=== PATIENT | male | born 1995 | race Caucasian/White ===

== ENCOUNTER 2024-11-06 12:12 | Outpatient (AMB) | payer OTHER, SELFPAY ==
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
[2024-11-06 12:33] VITALS: BP 139/75; PULSE 65; RESP 16; TEMP 36.7; O2SAT 98; BMI 31.4
[2024-11-06 12:50] VITALS: BP 120/76
== END 2024-11-06 13:15 | disposition home or self-care (01) ==
LOC: HO.HMCFM 12:14
PROVIDERS: PCP Nurse Practitioner Family; Visit Provider Nurse Practitioner Family
DX: Z00.00 Encounter for general adult medical examination without abnormal findings (principal); K21.9 Gastro-esophageal reflux disease without esophagitis; E66.811 Obesity, class 1; Z68.31 Body mass index [BMI] 31.0-31.9, adult; F10.90 Alcohol use, unspecified, uncomplicated; F17.210 Nicotine dependence, cigarettes, uncomplicated; Z72.89 Other problems related to lifestyle

== ENCOUNTER → 2024-11-06 12:12 | Outpatient (BNVA) | payer OTHER, SELFPAY | PROVIDERS: PCP Nurse Practitioner Family; Visit Provider Nurse Practitioner Family | DX: Z00.00 Encounter for general adult medical examination without abnormal findings (principal); K21.9 Gastro-esophageal reflux disease without esophagitis; F10.90 Alcohol use, unspecified, uncomplicated; E66.811 Obesity, class 1; Z72.89 Other problems related to lifestyle; F17.210 Nicotine dependence, cigarettes, uncomplicated | CPT/HCPCS: 96127; 99202; 99385 ==

== ENCOUNTER 2024-11-17 07:35 | Outpatient (REF) | payer OTHER, SELFPAY ==
[2024-11-17 12:30] LABS: MANUAL DIFF FLAG NO
[2024-11-17 12:31] LABS: Appearance Urine Clear; Color Urine Yellow; Glucose Urine UA Negative (Negative); Leukocyte Esterase Urine Negative (Negative); Nitrite Urine Negative (Negative); PH 6.5 (5.0-9.0); UMIC TRIGGER UACC YES; Urine Blood Negative (Negative); Urine Ketones Negative (Negative); Urine Protein 30 (1+) mg/dL (Neg-Trace)
[2024-11-17 12:38] LABS: Bacteria Urine None Seen (None Seen); Hyaline Casts Urine 0-2 /LPF (0-2); RBC Urine 0-2 /HPF (0-2); Squamous Epithelial Cell Urine 0-2 /HPF (0-2); WBC Urine 0-5 /HPF (0-5)
[2024-11-17 12:45] LABS: Basophils Absolute Auto 0.1 X10*3/uL (0.0-0.2); Basophils Percent Auto 0.8 % (0-2); Eosinophils Absolute Auto 0.1 X10*3/uL (0.0-0.4); Eosinophils Percent Auto 1.3 % (0-4); Hematocrit 52.6 % (42.0-52.0); Hemoglobin 18.4 g/dl (14.0-18.0); Imm Gran Abs Auto 0.05 X10*3/uL (0.00-0.03); Imm Gran Pct Auto 0.7 % (0.0-0.4); Lymphocytes Absolute Auto 2.3 X10*3/uL (1.2-4.9); Mean Corpuscular Hemoglobin 32.2 pg (27.0-33.0); Mean Corpuscular Volume 92.1 fL (80.0-98.0); Mean Platelet Volume 10.9 fL (9.4-12.4); Monocytes Absolute Auto 0.5 X10*3/uL (0.1-1.2); Monocytes Percent Auto 6.5 % (2-11); Neutrophils Absolute Auto 4.2 x10*3/uL (2.0-8.3); Neutrophils Percent Auto 58.7 % (45-73); Platelet Count 216 X10*3/uL (160-400); Red Blood Count 5.71 X10*6/uL (4.60-5.80); Red Cell Distribution Width 12.7 % (11.0-16.0); White Blood Count 7.1 X10*3/uL (4.8-10.8)
[2024-11-17 13:21] LABS: Alanine Aminotransferase 89 U/L (0-40); Albumin Level 4.8 g/dL (3.5-5.0); Alkaline Phosphatase 55 U/L (39-117); Anion Gap 12 (12-20); Aspartate Amino Transferase 43 U/L (5-37); Bilirubin Total 0.7 mg/dL (0.0-1.0); Blood Urea Nitrogen 10 mg/dL (9-16); Calcium 9.2 mg/dL (8.4-10.2); Carbon Dioxide 27 mmol/L (22-29); Chloride 105 mmol/L (96-108); Cholesterol 214 mg/dL (<200); Estimated Glomerular Filt Rate > 60; Glucose Fasting 102 mg/dL (60-99); HDL Cholesterol 55 mg/dL (>40); LDL Cholesterol Calculated 134 mg/dL (<100); Potassium 3.9 mmol/L (3.3-5.1); Sodium 140 mmol/L (135-145); Total Protein 7.5 g/dL (6.5-8.0); Triglycerides 126 mg/dL (<150)
[2024-11-17 13:38] LABS: Microalbum/Creatinine Ratio Ur 23.2 ug/mg cr (<30)
[2024-11-17 13:42] LABS: TSH reflex Free T4 1.22 uIU/mL (0.32-4.0); Vitamin D 25-OH Total 58.1 ng/mL (>30)
== END 2024-11-17 07:36 | disposition home or self-care (01) ==
LOC: HO.WFDLDS 07:35
PROVIDERS: Visit Provider Nurse Practitioner Family
DX: Z00.00 Encounter for general adult medical examination without abnormal findings (principal); Z13.220 Encounter for screening for lipoid disorders; Z13.29 Encounter for screening for other suspected endocrine disorder; Z13.228 Encounter for screening for other metabolic disorders; Z13.9 Encounter for screening, unspecified
CPT/HCPCS: 36415; 80053; 80061; 81001; 82043; 82306; 82570; 84443; 85025

== ENCOUNTER 2024-11-21 13:09 | Outpatient (AMB) | payer OTHER, SELFPAY ==
--- NOTE | 2024-11-21 13:05 | MHC.PC.OV ---
Intake Visit Reasons: Telehealth 2-3 wks labs review Intake Note: Lab results. Regulatory Product Manager Required: No Allergies No Known Allergies Allergy (Verified 11/06/24 12:44) Tobacco use date assessed: 11/21/24 Dental Screening Dental Screen Date: 11/06/24 HPI HPI Comments History of Present Illness Details 29-year-old male presents for a telehealth visit for review of recent labs review. He notes that he significantly cut down from drinking 4-5 beers/vodka daily to drink 1 mixed drink daily x 6 days weekly. He was referred to [facility] addiction medicine but has not heard from them. He offers no complaints and denies acute symptoms at this time. [facility] Medical History (Updated 11/21/24 @ 13:43 by Nerissa Islas CNP) Acid reflux Surgical History S/P foot surgery, left Family History Mother Alcohol abuse Father Alcohol abuse Substance abuse FH: mental illness Maternal Grandfather Alcohol abuse Maternal Grandmother Alcohol abuse Paternal Grandmother Breast cancer Social History (Updated 11/21/24 @ 13:11 by Radha Lindquist CMA) Housing: Apartment Alcohol intake: current Patient Tobacco Use Status: Current everyday Tobacco user Cigarettes Per Day: 10 Years Smoked: 5 e-Cigarette/Vaping Use: Currently Using Second Hand Smoke Exposure: No Substance Use Type: Marijuana service: No Current occupational status: employed Current occupation: [employer] Current occupational exposures/hazards: Yes Cognitive needs: No Hearing needs: No Vision needs: No Questionnaire PHQ-9 Over the last 2 weeks, how often have you been bothered by any of the following problems? 1. Little interest or pleasure in doing things: not at all 2. Feeling down, depressed, or hopeless: not at all 3. Trouble falling or staying asleep, or sleeping too much: not at all 4. Feeling tired or having little energy: several days 5. Poor appetite or overeating: not at all 6. Feeling bad about yourself - or that you are a failure or have let yourself or your family down: not at all 7. Trouble concentrating on things, such as reading the newspaper or watching television: not at all 8. Moving or speaking so slowly that other people could have noticed. Or the opposite - being so fidgety or restless that you have been moving around a lot more than usual: nearly every day 9. Thoughts that you would be better off or of hurting yourself in some way: not at all Total score: 4 Depression Screening Interpretation: Positive Depression Screening Done: Yes 74361 - PHQ-9 Billing: Yes Source: Developed by Drs. Rocco Billings, Juan Philippe and colleagues, with an educational juan from [employer]. Thrive Questionnaire Date Thrive assessed: 11/06/24 SHAY-7 AMB Questionnaire SHAY-7 Date SHAY - 7 assessed: 11/21/24 Feeling nervous, anxious, or on edge: 0 = Not at all Not being able to stop or control worryin = Several days Worrying too much about different things: 1 = Several days Trouble relaxin = Nearly every day Being so restless that it is hard to sit still: 3 = Nearly every day Becoming easily annoyed or irritable: 0 = Not at all Feeling afraid as if something awful might happen: 1 = Several days Total SHAY-7 score (0-4 normal; 5-9 mild; 10-14 moderate; 15-21 severe): 9 Source: Developed by Drs. Rocco Billings, Melonie Guillermo, Juan Smith and colleagues, with an educational juan from [employer]. SHAY-7 Assessment Billing SHAY-7 Assessment Tool: SHAY-7 Assessment 51770 Review of Systems Const Details: Denies chills, Denies fatigue, Denies fever(s), Denies headache(s) and Denies weakness Cardiac Denies chest pain, Denies claudication, Denies leg edema, Denies lightheadedness, Denies palpitations, Denies dyspnea, Denies dyspnea on exertion, Denies orthopnea and Denies other (Loss of consciousness) Resp Denies cough, Denies excessive phlegm production, Denies dyspnea, Denies dyspnea on exertion, Denies snoring and Denies wheezing Physical exam (Primary Care) Tobacco/Smoking Status: Tobacco use Status Tobacco use date assessed 11/21/24 11/21/24 13:08 Patient Tobacco Use Status Current everyday Tobacco 11/21/24 13:11 e-Cigarette/Vaping Use Currently Using 11/21/24 13:11 PHQ-9: PHQ-9 Score PHQ-9: Total score 4 11/21/24 13:08 Depression Screening Interpretation: Positive Thrive Assessment: Date of Thrive Assessment Date Thrive assessed 11/06/24 11/21/24 13:08 Const Other: Patient is alert and oriented x3. Telehealth Telehealth Telehealth Platform: Telephone Location of provider rendering services: practice address Location of patient: address on file Patient Identification confirmed using: Name, : Yes Telehealth method: voice only Patient verbally consented to treatment: Yes Patient verbally consented to billing insurance company: Yes Patient informed of any privacy concerns related to visit: Yes Coding Level of Care Code Tele Est Pt Level 3 (70931) Diagnoses Elevated fasting glucose R73.01 Transaminitis R74.01 Hypercholesterolemia E78.00 Additional Codes SHAY-7 Assessment Billing - SHAY-7 Assessment Tool: SHAY-7 Assessment 86535 ([id number]) PHQ-9 - 49913 - PHQ-9 Billing: Yes ([id number]) Time Spent (min) 15 Assessment & Plan Assessment & Plan (1) Elevated fasting glucose: Code(s): R73.01 - Impaired fasting glucose Category: Medical Plan: Recent fasting glucose is slightly elevated, 102. Will recheck fasting glucose and make changes as needed. (2) Transaminitis: Code(s): R74.01 - Elevation of levels of liver transaminase levels Category: Medical Plan: Recent AST and ALT levels are elevated, 43 and 89 respectively. Likely related to poor diet or excessive alcohol intake. He has history of significant alcohol intake. He currently drinks 1 mixed drinks daily, 6 days weekly. Routine exercise and healthy diet, including low-fat encouraged. Encouraged to significantly cut down on his alcohol intake. Fast for 10-12 hours, may drink water, and perform fasting blood work to 3 days before next visit. Follow-up for telehealth visit in 2 months. Return sooner with symptoms or concerns. Verbalized understanding and agreed with the plan. (3) Hypercholesterolemia: Code(s): E78.00 - Pure hypercholesterolemia, unspecified Category: Medical Plan: Recent total cholesterol and LDL levels the slightly elevated, 214 and 134 respectively. Advised to limit foods high in saturated fat and avoid foods high in trans fat. Routine exercise encouraged. Will recheck lipid panel levels in 2 months. Verbalized understanding and agreed with the plan. Orders: Orders Lipid Panel 2 Months E78.00 - Pure hypercholesterolemia, unspecified Liver Panel 2 Months R74.01 - Elevation of levels of liver transaminase levels Glucose Fasting Today R73.01 - Impaired fasting glucose
--- OUTSIDE RECORDS SUMMARY | 2024-11-21 15:00 | XMS_ITS | Encounter Summary ---
Author Organization [facility] Address [address] [place] [address] Phone Care Team Providers Care Spine Specialist Name Role Phone Rocco Dobbs MD Primary Care Provider [phone] Encounter Details Date Type Department Care Team (Late st Contact Info) Description 09/02/2009 Documentation [facility] [place] Family Medicine [address] [place] [address] Family Medicine, Physician [address] [place] [address] Social History Tobacco Use Types Packs/Day Years Used Date Smoking Tobacco: Never Assessed Sex and Gender Information Value Date Recorded Sex Assigned at Not on file Legal Sex Male 6:09 PM EDT Gender Identity Not on file Sexual Orientation Not on file documented as of this encounter Plan of Treatment Not on file documented as of this encounter Visit Diagnoses Not on filedocumented in this encounter Care Teams Spine Specialist Relationship Specialty Start Date End Date Rocco Dobbs MD [address] [place] [address] PCP - General 12/26/17 09/28/24 documented as of this encounter
--- OUTSIDE RECORDS SUMMARY | 2024-11-21 15:00 | XMS_ITS | Data Portability ---
Author Organization [facility] Nieto [facility] , [id number] Address [address] [place] [address] Assessment No assessment recorded. Plan of Treatment Reminders Order Date Submit Date Provider Last Modified By Organization Details Last Modified Time Details Appointments None recorded. Lab None recorded. Referral gastroenter ologist referral 2024 025 alaines Not available 11:11:56 Procedures None recorded. Surgeries None recorded. Imaging None recorded. Medication Orders omeprazole 20 mg capsule,del ayed release 2024 025 [email or web address] [id number], [address] [place], [address], 11:10:23 Patient TargetsNo targets recorded. Patient Instructions Encounter Date Encounter Id Patient Instructions Last Modified By Organization Details Last Modified Time 08/30/2024 [id number] gastroesophageal reflux disease (GERD): care instructions [email or web address] Not available 08/30/2024 11:10:20 Reason for Referral Clinical Documentation Manager Referral for Gastroesophageal reflux disease Referring Physician: Wong Temple, Urgent Care, Encounter Date: 08/30/2024 Procedures Surgical History Date Name Laterality Status Provider Name and Address Organization Details Recorded Time OC-UDS Send Out Template NON DOT completed Dominique Nieto [facility] 04/05/2023 09:21:25 Imaging Results None recorded. Procedure Notes None recorded. Medical Equipment None Reported. Allergies No known drug allergies Medications Name Sig Start Date Stop Date Status Note LastModified by Organization Details LastModified Time tamsulosin 0.4 mg capsule TAKE 1 CAPSULE BY MOUTH EVERY DAY FOR 7 DAYS 08/30 completed Not Available Not Available Not Available omeprazole 20 mg capsule,del ayed release TAKE 1 CAPSULE BY MOUTH EVERY DAY active Not Available Not Available No t Available ondansetron 4 mg disintegrat ing tablet TAKE 1 TABLET BY MOUTH EVERY 8 HOURS NEEDED FOR NAUSEA AND VOMITING FOR 3 DAYS 08/30 completed Not Available Not Available Not Available doxycycline hyclate 100 mg tablet TAKE 1 TABLET BY MOUTH TWICE A DAY FOR 7 DAYS 08/30 completed Not Available Not Available Not Available oxycodone 5 mg tablet TAKE 1 TABLET BY MOUTH EVERY 6 HOURS FOR 3 DAYS NEEDED FOR PAIN 08/30 completed Not Available Not Available Not Available Vitals Date Recorded Body height Body mass index (BMI) Body weight Oxygen saturation Oxygen saturation in Arterial blood by Pulse oximetry Heart rate Body temperature Systolic blood pressure Diastolic blood pressure Provider Name and Address Organization Details Last Updated DateTime 167.64 cm 31.3 kg/m2 96098.9 2 g 97 % 97 % 71 /min 98.2 [degF] 126 mm[Hg] 82 mm[Hg] Kena PERRY [employer] 10:54:01 Social History Question Answer Notes LastModified by [employer] Details LastModified Time Tobacco Smoking Status Never Smoker Kena myles [employer] 08/30/2024 10:56:14 What Is Your Level Of Alcohol Consumption? Moderate Information not available 08/30/2024 How Many Times Per Week Do You Consume Alcohol? 5-7 Times Per Week Information not available 08/30/2024 Are You Currently Employed? Yes Information not available 08/30/2024 Which Illicit Or Recreational Drugs Have You Used? MARIJUANA Information not available 08/30/2024 Have You Had A Flu Shot This Season? No Information not available 08/30/2024 If No, Would You Like A Flu Shot Today? No Information not available 08/30/2024 What Is Your Relationship Status? Single Information not available 08/30/2024 Are You Passively Exposed To Smoke? No Information no t available 08/30/2024 Do You Use Any Illicit Or Recreational Drugs? Yes Information not available 08/30/2024 Do You Or Have You Ever Used Any Other Forms Of Tobacco Or Nicotine? No Information not available 08/30/2024 Sex: Unknown Functional Status None recorded. Mental Status None recorded. Family History Nothing Reported. Medical History No medical history recorded. Past Encounters Encounter ID Performer Location Encounter Start Date Encounter Closed Date Diagnosis/Indication Diagnosis SNOMED-CT Code Diagnosis ICD10 Code Diagnosis Note [id number] [address] 12/29/2016 16:49:00 12/29/2016 17:40:41 [id number] [place] DIXON [address] [address] 04/05/2023 09:08:23 04/05/2023 09:26:14 History and physical examination, occupation 635898542 Z02.1 [id number] Wong Temple DO [address] [address] 08/30/2024 10:41:32 08/30/2024 11:11:56 Gastroesophageal reflux disease 540180687 K21.00 GERD v PUDstart PPI BIDGI referralav oid NSAID and gerd triggers Patient advised to follow up as needed for worsening symptoms or no improvemen Babita jackson concerning red flags with patient and reasons to follow up in the Emergency Department urgently.P atient expressed understand ing of and agreement with the plan as outlined above. Health Concerns Section Related Observation LastModified by Organization Detai ls LastModified Time None Recorded Concern Status LastModified by Organization Details LastModified Time None Recorded Advance Directives Directive None Recorded Payers Encounter Date Sequence Insurance Name Policy Number Policy Perea Covered Member ID Perea Member ID Guarantor Name 12/29/2016 1 [employer] (POS) [id number] Lolly Subha [id number] Oral Gutierrez 04/05/2023 [employer]CREEN [employer] OTHER Mi roasnna Matt 08/30/2024 1 [facility] (O) [id number] Oral Gutierrez [id number] Oral Gutierrez Notes Date Note Type Note Provider Name and Address Organization Details Recorded Time 08/30/2024 text/html 29 yo male c/o throat pain and esophageal pain x monthsradiates to upper abdomen/back no f/cno n/vno d/cno abdominal painno melena/BRBPRno new medsHe has used ibutolerating POno wt lossnon smoker Wong Temple, DO [address] [place], [address], [place] - [facility] 08/30/2024 11:11:41
--- OUTSIDE RECORDS SUMMARY | 2024-11-21 15:00 | XMS_ITS | Encounter Summary ---
Author Organization [facility] Address [address] [place] [address] Phone Care Team Providers Care Porcelain Slusher Name Role Phone Rocco Dobbs MD Primary Care Provider [phone] Encounter Details Date Type Department Care Team (Late st Contact Info) Description 09/14/2009 Documentation [facility] [place] [address] [place] [address] Family Medicine, Physician [address] [place] [address] Social History Tobacco Use Types Packs/Day Years [...] on filedocumented in this encounter Care Teams Porcelain Slusher Relationship Specialty Start Date End Date Rocco Dobbs MD [address] [place] [address] PCP - General 12/26/17 09/28/24 documented as of this encounter
--- OUTSIDE RECORDS SUMMARY | 2024-11-21 15:00 | XMS_ITS | Encounter Summary ---
Author Organization [facility] Address [address] [place] [address] Phone Care Team Providers Care Special Loan Officer Name Role Phone Rocco Dobbs MD Primary Care Provider [phone] Encounter Details Date Type Department Care Team (Late st Contact Info) Description 01/06/2018 Conversion Encounter [facility] [address] [place] [address] Rocco Dobbs MD [address] [place] [address] Social History Tobacco Use Types Packs/Day Years [...] on filedocumented in this encounter Care Teams Special Loan Officer Relationship Specialty Start Date End Date Rocco Dobbs MD [address] [place] [address] PCP - General 12/26/17 09/28/24 documented as of this encounter
--- OUTSIDE RECORDS SUMMARY | 2024-11-21 15:00 | XMS_ITS | Encounter Summary ---
Author Organization [facility] Address [address] [place] [address] Phone Care Team Providers Care Watchguard Name Role Phone Rocco Dobbs MD Primary Care Provider [phone] Encounter Details Date Type Department Care Team (Late st Contact Info) Description 08/23/2009 Documentation [facility] [place] [address] [place] [address] Family Medicine, Physician [address] [place] [address] Social History Tobacco Use Types Packs/Day Years [...] on filedocumented in this encounter Care Teams Watchguard Relationship Specialty Start Date End Date Rocco Dobbs MD [address] [place] [address] PCP - General 12/26/17 09/28/24 documented as of this encounter
--- OUTSIDE RECORDS SUMMARY | 2024-11-21 15:00 | XMS_ITS | Clinical Summary ---
Author Organization [facility] Address [address] [place] [address] Phone Care Team Providers Care Construction Services Technician Name Role Phone Unavailable Primary Care Provider Unavailabl e Immunizations Immunization Administration Dates Next Due DTaP 12/23/2001, 8,1997, 998,1997 Hep B, ped/adol 01/21/1998,1997,1997 Hib (PRP-T) 07/28/1998, 8,1997, 997 IPV 12/23/2001, 8,1997, 997 MMR 12/23/2001,04/22/1998 Meningococcal Conj (Menactra) MCV4P 07/21/2013,1 09/05/2007 Tdap 07/03/2007 Varicella 07/03/2007,04/22/1998 Family History Relation Name Status Comments Father (bio)/ step fat her also - suicide age: 30 Maternal Grandfather Alive no hype rlipidemia, no, CAD Maternal Grandmother Alive Mother Alive healthy age: 30 Other Alive Siblings: healt hy Paternal Grandfather Alive Paternal Grandmother Alive Social History Tobacco Use Types Packs/Day Years Used Date Smoking Tobacco: Never Assessed Sex and Gender Information Value Date Recorded Sex Assigned at Not on file Legal Sex Male 6:09 PM EDT Gender Identity Not on file Sexual Orientation Not on file Last Filed Vital Signs Vital Sign Reading Time Taken Comments Blood Pressure 118/64 04/21/2015 12:00 AM EDT Pulse - - Temperature 36.2 ??C (97.2 ??F) 04/21/2015 1 2:00 AM EDT Respiratory Rate - - Oxygen Saturation - - Inhaled Oxygen Concentration - - Weight 63.9 kg (140 lb 12.8 oz) 015 12:00 AM EDT Height 167.6 cm (5' 6 ) 04/21/2015 12:0 0 AM EDT Body Mass Index 22.73 04/21/2015 12:00 AM EDT Plan of Treatment Health Maintenance Due Date Last Done Comments DTaP,Tdap,and Td Vaccines (7 - Td or Tdap) 07/03/2017 07/03/2007, 12/23/2001, 07/28/1998, Additional history exists Influenza Vaccines (#1) 2024 COVID-19 Vaccine ( season) 2024 Hepatitis B Vaccines Completed 01/21/1998, 1997, 1997 HIB Vaccines Completed 07/28/1998, 12/1997, 1997, Additional history exists IPV Vaccines Completed 12/23/2001, 10/1997, 1997, Additional history exists MMR Vaccines Completed 12/23/2001, 04/22/1998 Varicella Vaccines Completed 07/03/2007, 04/22/1998 Meningococcal Vaccine Completed 07/21/2013, 008 HPV Vaccines Aged Out No longer eligi ble based on patient's age to complete this topic Hepatitis A Vaccines Aged Out No long er eligible based on patient's age to complete this topic Men B Vaccine Aged Out No longer elig ible based on patient's age to complete this topic Pneumococcal Vaccine Aged Out No long er eligible based on patient's age to complete this topic
== END 2024-11-21 13:58 | disposition home or self-care (01) ==
LOC: HO.HMCFM 13:09
PROVIDERS: PCP Nurse Practitioner Family; Visit Provider Nurse Practitioner Family
DX: R73.01 Impaired fasting glucose (principal); R74.01 Elevation of levels of liver transaminase levels; E78.00 Pure hypercholesterolemia, unspecified

== ENCOUNTER → 2024-11-21 13:09 | Outpatient (BNVA) | payer OTHER, SELFPAY | PROVIDERS: PCP Nurse Practitioner Family; Visit Provider Nurse Practitioner Family | DX: R73.01 Impaired fasting glucose (principal); R74.01 Elevation of levels of liver transaminase levels; E78.00 Pure hypercholesterolemia, unspecified; F17.210 Nicotine dependence, cigarettes, uncomplicated | CPT/HCPCS: 96127 ==

== ENCOUNTER 2025-04-14 10:12 | Outpatient (AMB) | payer OTHER, SELFPAY ==
--- NOTE | 2025-04-14 10:15 | A.OFFVIS_ITS ---
Vital Signs 04/14/25 10:23 Height 5 ft 5 in Weight 187 lb BMI 31.1 BP 140/84 H Blood Pressure Location Rt brachial Position Sitting Pulse 62 Pulse Source Pulse Oximeter Pulse Oximetry (%) 99 Oxygen Delivery Method Room Air Intake Visit Reasons: Gastroesophageal reflux disease (GERD) Intake Note: New pt for initial eval of GERD. CC; C.O. intermittent GERD w/ epigastric pain over the last 8 mos. Pt states that he has been taking the PPI per his PCP which has been helpful. ID'd acidic foods as triggers. Telecommunications Facility Examiner Required: No Accompanied by: Self / Same As Patient Allergies No Known Allergies Allergy (Verified 04/14/25 10:15) HPI HPI Gastroesophageal reflux disease (GERD): Details: 30-year-old male with past medical history of hypercholesterolemia, transaminitis, obesity, smoking, EtOH use, GERD is here today for initial consultation. Patient was sent by his PCP for evaluation. Patient reports that in the past 8 months he has been having acid reflux that started on omeprazole by his PCP and symptoms are suppressed with patient reports that he has acid reflux with spicy food and when he drinks alcohol. Patient reports that he drinks vodka. He admits to be drinking daily. Elevation in liver enzymes back in October. Patient reports that omeprazole works, however he does not take it for few days he will have acid reflux and dyspepsia. Patient denies any nausea or vomiting. He denies any dysphagia or odynophagia. Denies any abdominal pain or discomfort. Moving his bowels without any issues. [facility] Medical History Acid reflux Surgical History S/P foot surgery, left Family History Mother Alcohol abuse Father Alcohol abuse Substance abuse FH: mental illness Maternal Grandfather Alcohol abuse Maternal Grandmother Alcohol abuse Paternal Grandmother Breast cancer Social History Housing: Apartment Alcohol intake: current Patient Tobacco Use Status: Current everyday Tobacco user Cigarettes Per Day: 10 Years Smoked: 5 e-Cigarette/Vaping Use: Currently Using Second Hand Smoke Exposure: No Substance Use Type: Marijuana service: No Current occupational status: employed Current occupation: [employer] Current occupational exposures/hazards: Yes Cognitive needs: No Hearing needs: No Vision needs: No Review of Systems Const Denies weight gain and Denies weight loss ENT Reports no additional complaints, Denies dysphagia and Denies odynophagia Card Reports no additional complaints Resp Reports no additional complaints GI Reports abdominal pain (Epigastric), Denies belching, Denies melena, Reports bloating, Denies change in bowel habits, Denies dysphagia, Denies excessive flatus, Denies dyspepsia, Reports heartburn, Denies diarrhea, Denies loose stools, Denies nausea, Denies odynophagia and Denies vomiting Reports no additional complaints Musc Reports no additional complaints Neuro Reports no additional complaints Psych Reports no additional complaints Endo Reports no additional complaints Physical Exam Vital Signs: Last Vital Signs Pulse 62 04/14/25 10:23 BP 140/84 H 04/14/25 10:23 Pulse Ox 99 04/14/25 10:23 Oxygen Delivery Method Room Air 04/14/25 10:23 BMI result Body Mass Index 31.1 Const General: healthy appearing, no acute distress and well developed Nutritional Appearance: well nourished and obese Orientation/consciousness: patient oriented x3 Resp Effort & Inspection: normal respiratory effort, able to speak in complete sentences, no tracheal deviation and symmetric chest movement Auscultation: clear to auscultation bilaterally Cardio Rate: regular rate GI Inspection: Yes normal to inspection, No distended and Yes obesity Palpation (GI): Soft to palpation, not firm, nontender and No hepatosplenomegaly present Auscultation: normal bowel sounds General: Yes no CVA tenderness Back/Spine/Pelvis Back: no CVA tenderness Skin General skin exam: elasticity normal, turgor normal and dry skin Neuro General: patient oriented x3 Psych Appearance: grossly normal Mental Status: mental status grossly normal Assessment & Plan Assessment & Plan (1) Acid reflux: Code(s): K21.9 - Gastro-esophageal reflux disease without esophagitis Category: Medical Qualifiers: Esophagitis presence: esophagitis presence not specified Qualified Code(s): K21.9 - Gastro-esophageal reflux disease without esophagitis (2) Transaminitis: Code(s): R74.01 - Elevation of levels of liver transaminase levels Category: Medical (3) Alcohol use disorder: Code(s): F10.90 - Alcohol use, unspecified, uncomplicated Category: Medical (4) Postprandial epigastric pain: Code(s): R10.13 - Epigastric pain (5) Postprandial abdominal bloating: Code(s): R14.0 - Abdominal distension (gaseous) Plan Patient will stop omeprazole for couple weeks and will take famotidine. Will return to the office for H pylori testing. Will treat empirically if positive. Patient will go for upper GI with barium swallow. Will check transglutaminase, vitamin B12, folate, vitamin-D, lipase, repeat liver panel. Discussed with patient avoiding dietary triggers and late night snacking. Discussed with patient avoiding alcohol. Staying upright for minimum 3 hours after meals discussed with patient. He will be sent for upper endoscopy to rule out gastritis, esophagitis, duodenitis, H pylori, Barretts. Patient will return to the office after the procedure. He will call us if he will have any GI concerning symptoms. He is agreeable to current plan of care and verbalizes understanding of instructions. He was given the opportunity to ask questions and all questions answered. Thank you for allowing me to participate in his care Orders: Orders H Pylori Breath Test Today K21.9 - Gastro-esophageal reflux disease without esophagitis FL upper GI w air w Ba Swallow Today K21.9 - Gastro-esophageal reflux disease without esophagitis Transglutaminase IgA Today R10.9 - Unspecified abdominal pain Vitamin B12 and Folate Today R19.7 - Diarrhea, unspecified Vitamin D 25-OH (D2 and D3) Today E55.9 - Vitamin D deficiency, unspecified Lipase Today R10.9 - Unspecified abdominal pain Liver Panel Today R74.01 - Elevation of levels of liver transaminase levels Medications: New famotidine (Pepcid) 20 mg PO BID 30 tabs 0RF K29.70 - Gastritis, unspecified, without bleeding Coding Level of Care Code New Pt Level 4 (63042) Diagnoses Gastroesophageal reflux disease, unspecified whether esophagitis present K21.9 Esophagitis presence: esophagitis presence not specified Transaminitis R74.01 Alcohol use disorder F10.90 Postprandial epigastric pain R10.13 Postprandial abdominal bloating R14.0 Time Spent (min) 45 Comment 30 minutes spent with patient and additional 15 minutes spent reviewing his records
[2025-04-14 10:23] VITALS: BP 140/84; PULSE 62; O2SAT 99; BMI 31.1
--- OUTSIDE RECORDS SUMMARY | 2025-04-14 10:57 | XMS_ITS | Encounter Summary ---
Author Organization [facility] Address [address] [place] [address] Phone Care Team Providers Care Bi Application Developer Name Role Phone Rocco Dobbs MD Primary Care Provider [phone] Encounter Details Date Type Department Care Team (Late st Contact Info) Description 09/02/2009 Documentation [facility] [place] [address] [place] [address] Family Medicine, Physician [address] [place] [address] Social History Tobacco Use Types Packs/Day Years [...] on filedocumented in this encounter Care Teams Bi Application Developer Relationship Specialty Start Date End Date Rocco Dobbs MD [address] [facility] [place] [address] PCP - General 12/26/17 09/28/24 documented as of this encounter
--- OUTSIDE RECORDS SUMMARY | 2025-04-14 10:57 | XMS_ITS | Encounter Summary ---
Author Organization [facility] Address [address] [place] [address] Phone Care Team Providers Care Nutrition Worker Name Role Phone Rocco Dobbs MD Primary Care Provider [phone] Encounter Details Date Type Department Care Team (Late st Contact Info) Description 08/23/2009 Documentation [facility] [place] Family Medicine [address] [place] [address] Family Medicine, Physician [address] [place] [address] Social History Tobacco Use Types Packs/Day Years [...] on filedocumented in this encounter Care Teams Nutrition Worker Relationship Specialty Start Date End Date Rocco Dobbs MD [address] [place] [address] PCP - General 12/26/17 09/28/24 documented as of this encounter
--- OUTSIDE RECORDS SUMMARY | 2025-04-14 10:57 | XMS_ITS ---
Author Name [facility] Organization Unknown Encounters Encounter Type Encounter Reason Primary Diagnosis Location Date Ambulatory [facility]. ([facility] 08/30/2024
--- OUTSIDE RECORDS SUMMARY | 2025-04-14 10:57 | XMS_ITS | Clinical Summary ---
Author Organization [facility] Address [address] [place] [address] Phone Care Team Providers Care Revenue Officer Name Role Phone Unavailable Primary Care Provider [...] AM EDT Pulse - - Temperature 36.2 C (97.2 F) 04/21/2015 12:00 AM EDT Respiratory Rate - - Oxygen [...] 07/03/2017 07/03/2007, 12/23/2001, 07/28/1998, Additional history exists HPV Vaccines (1 - 3-dose SCDM series) 2024 COVID-19 Vaccine ( season) 2024 Influenza Vaccines (#1) 2025 Hepatitis B Vaccines Completed 01/21/1998, 1997, 1997 HIB Vaccines Completed 07/28/1998, 12/1997, 1997, Additional history exists IPV Vaccines Completed 12/23/2001, 10/1997, 1997, Additional history exists MMR Vaccines Completed 12/23/2001, 04/22/1998 Varicella Vaccines Completed 07/03/2007, 04/22/1998 Meningococcal Vaccine Completed 07/21/2013, 008 Hepatitis A Vaccines Aged Out No long er eligible based on patient's age to complete this topic Men B Vaccine Aged Out No longer elig ible based on patient's age to complete this topic Pneumococcal Vaccine Aged Out No long er eligible based on patient's age to complete this topic
--- OUTSIDE RECORDS SUMMARY | 2025-04-14 10:57 | XMS_ITS | Encounter Summary ---
Author Organization [facility] Address [address] [place] [address] Phone Care Team Providers Care Hand Method Lasting Machine Operator Name Role Phone Rocco Dobbs MD Primary Care Provider [phone] Encounter Details Date Type Department Care Team (Late st Contact Info) Description 01/06/2018 Conversion [facility]counter [facility] [address] [place] [address] Rocco Dobbs MD [address] [place] [address] Social History Tobacco Use Types Packs/Day Years [...] on filedocumented in this encounter Care Teams Hand Method Lasting Machine Operator Relationship Specialty Start Date End Date Rocco Dobbs MD [address] [place] [address] PCP - General 12/26/17 09/28/24 documented as of this encounter
--- OUTSIDE RECORDS SUMMARY | 2025-04-14 10:57 | XMS_ITS | Encounter Summary ---
Author Organization [facility] Address [address] [place] [address] Phone Care Team Providers Care Fitness Management Director Name Role Phone Rocco Dobbs MD Primary Care Provider [phone] Encounter Details Date Type Department Care Team (Late st Contact Info) Description 09/14/2009 Documentation [facility] [place] [facility] [place] [address] [place] [address] Family Medicine, Physician [address] [place] [address] Social History Tobacco Use Types Packs/Day Years [...] on filedocumented in this encounter Care Teams Fitness Management Director Relationship Specialty Start Date End Date Rocco Dobbs MD [address] [place] [address] PCP - General 12/26/17 09/28/24 documented as of this encounter
== END 2025-04-14 10:49 | disposition home or self-care (01) ==
LOC: HO.HGI 10:13
PROVIDERS: PCP Nurse Practitioner Family; Visit Provider Nurse Practitioner Family
DX: K21.9 Gastro-esophageal reflux disease without esophagitis (principal); R74.01 Elevation of levels of liver transaminase levels; F10.90 Alcohol use, unspecified, uncomplicated; R10.13 Epigastric pain; R14.0 Abdominal distension (gaseous)
CPT/HCPCS: 99204

== ENCOUNTER 2025-04-14 10:12 | Outpatient (REF) | payer OTHER, SELFPAY ==
[2025-04-14 12:22] LABS: Alanine Aminotransferase 75 U/L (0-40); Albumin Level 5.2 g/dL (3.5-5.0); Alkaline Phosphatase 60 U/L (39-117); Aspartate Amino Transferase 38 U/L (5-37); Lipase 15 U/L (8-78); Total Protein 7.6 g/dL (6.5-8.0)
[2025-04-14 12:43] LABS: Folate 11.0 ng/mL (> or = 4.0); Vitamin B12 591 pg/mL (200-900)
[2025-04-19 16:49] LABS: Vitamin D 25-OH, D2 <4 ng/mL; Vitamin D 25-OH, D3 42 ng/mL; Vitamin D 25-OH, Total 42 ng/mL (30-100)
== END 2025-04-14 10:13 | disposition home or self-care (01) ==
LOC: HO.LAB 10:12
PROVIDERS: PCP Nurse Practitioner Family; Visit Provider Nurse Practitioner Family
DX: K21.9 Gastro-esophageal reflux disease without esophagitis (principal); R74.01 Elevation of levels of liver transaminase levels; F10.90 Alcohol use, unspecified, uncomplicated; R10.13 Epigastric pain; R14.0 Abdominal distension (gaseous); R19.7 Diarrhea, unspecified; E55.9 Vitamin D deficiency, unspecified; F17.210 Nicotine dependence, cigarettes, uncomplicated; Z79.899 Other long term (current) drug therapy
CPT/HCPCS: 36415; 80076; 82306; 82607; 82746; 83690; 86364; 99202

== ENCOUNTER 2025-05-01 14:29 | Outpatient (REF) | payer OTHER, SELFPAY | END 2025-05-01 14:30 | disposition home or self-care (01) | LOC: HO.LNP 14:29 | PROVIDERS: PCP Nurse Practitioner Family; Visit Provider Nurse Practitioner Family | DX: K21.9 Gastro-esophageal reflux disease without esophagitis (principal) | CPT/HCPCS: 83013 ==

== ENCOUNTER 2025-05-22 08:05 | Outpatient (REF) | payer OTHER, SELFPAY ==
--- NOTE | ~2025-05-22 | FL_ITS ---
EXAMINATION: XR UPPER GI SERIES WITH BARIUM SWALLOW. CLINICAL INFORMATION: Gastroesophageal reflux disease. Chest pain. COMPARISON: None available. TECHNIQUE: Routine upper GI air contrast study was performed in upright and lying position. FINDINGS: Following oral administration of thick barium and effervescent granules there is normal propagation bolus from the oral cavity through the pharynx, esophagus into stomach without obstruction, narrowing or stricture. There is no extrinsic compression. No laryngeal penetration and aspiration seen. On placing patient supine and prone lying there is moderate increased gastric secretions. No evidence of gastric erosions or ulceration. The duodenal bulb and the sweep is normal. There is little large gastroesophageal reflux into the upper esophagus with small sliding hiatal hernia. FLUOROSCOPY TIME: 2 2.05 minutes DOSE AREA PRODUCT: 2127 uGy-m2 (microgray-meter squared) FL/FL upper GI w air w Ba Swallow IMPRESSION: Large gastroesophageal reflux with small sliding hiatal hernia. Increased gastric secretions suggestive of hyper acidity. Electronically signed by: Kiirll Watters MD 05/22/2025 10:14 AM EDT
--- OUTSIDE RECORDS SUMMARY | 2025-05-22 08:15 | XMS_ITS | Clinical Summary ---
Author Organization [facility] Address [address] [place] [address] Phone Care Team Providers Care Staffing Coordinator Name Role Phone Unavailable Primary Care Provider [...] Vaccines (1 - 3-dose SCDM series) 2024 Influenza Vaccines (#1) 2025 COVID-19 Vaccine (2024- season) 2025 Hepatitis B Vaccines Completed 01/21/1998, 1997, [...]
--- OUTSIDE RECORDS SUMMARY | 2025-05-22 08:15 | XMS_ITS | Encounter Summary ---
Author Organization [facility] Address [address] [place] [address] Phone Care Team Providers Care Sack Maker Name Role Phone Rocco Dobbs MD Primary Care Provider [phone] Encounter Details Date Type Department Care Team (Late st Contact Info) Description 08/23/2009 Documentation [facility] [place] Family Medicine [address] [place] [address] Family Medicine, Physician [address] [place] [address] Social History Tobacco Use Types Packs/Day Years [...] on filedocumented in this encounter Care Teams Sack Maker Relationship Specialty Start Date End Date Rocco Dobbs MD [address] [place] [address] PCP - General 12/26/17 09/28/24 documented as of this encounter
--- OUTSIDE RECORDS SUMMARY | 2025-05-22 08:16 | XMS_ITS | Encounter Summary ---
Author Organization [facility] Address [address] [place] [address] Phone Care Team Providers Care Wastewater Project Engineer Name Role Phone Rocco Dobbs MD Primary Care Provider Encounter Details Date Type Department Care Team (Late st Contact Info) Description 09/14/2009 Documentation [facility] [place] [address] [place] [address] Family Medicine, Physician [address] [place] [address] Social History Tobacco Use Types Packs/Day Years [...] on filedocumented in this encounter Care Teams Wastewater Project Engineer Relationship Specialty Start Date End Date Rocco Dobbs MD [address] [place] [address] PCP - General 12/26/17 09/28/24 documented as of this encounter
--- OUTSIDE RECORDS SUMMARY | 2025-05-22 08:16 | XMS_ITS | Encounter Summary ---
Author Organization [facility] Address [address] [place] [address] Phone Care Team Providers Care Record Librarian Name Role Phone Rocco Dobbs MD Primary Care Provider [phone] Encounter Details Date Type Department Care Team (Late st Contact Info) Description 01/06/2018 Conversion Encounter [facility] [address] [place] [address] Rocco Dobbs MD [address] [place] [address] Social History Tobacco Use Types Packs/Day Years [...] on filedocumented in this encounter Care Teams Record Librarian Relationship Specialty Start Date End Date Rocco Dobbs MD [address] [place] [address] PCP - General 12/26/17 09/28/24 documented as of this encounter
--- OUTSIDE RECORDS SUMMARY | 2025-05-22 08:16 | XMS_ITS | Encounter Summary ---
Author Organization [facility] Address [address] [place] [address] Phone Care Team Providers Care Luggage Repairer Name Role Phone Rocco Dobbs MD Primary Care Provider [phone] Encounter Details Date Type Department Care Team (Late st Contact Info) Description 09/02/2009 [place]ation [facility] [place] [address] [place] [address] Family Medicine, Physician [address] [place] [address] Social History Tobacco Use Types Packs/Day Years [...] on filedocumented in this encounter Care Teams Luggage Repairer Relationship Specialty Start Date End Date Rocco Dobbs MD [address] [place] [address] PCP - General 12/26/17 09/28/24 documented as of this encounter
== END 2025-05-22 08:06 | disposition home or self-care (01) ==
LOC: HO.XRAY 08:05
PROVIDERS: PCP Nurse Practitioner Family; Visit Provider Nurse Practitioner Family
DX: K21.9 Gastro-esophageal reflux disease without esophagitis (principal)
CPT/HCPCS: 74246

== ENCOUNTER → 2025-05-22 08:06 | Outpatient (BNV) | payer OTHER, SELFPAY | PROVIDERS: PCP Nurse Practitioner Family; Visit Provider Radiology Diagnostic Radiology | DX: K21.9 Gastro-esophageal reflux disease without esophagitis (principal); K44.9 Diaphragmatic hernia without obstruction or gangrene | CPT/HCPCS: 74246 ==

== ENCOUNTER 2025-06-11 08:02 | Outpatient (REF) | payer OTHER, SELFPAY | END 2025-06-11 08:03 | disposition home or self-care (01) | LOC: HO.LAB 08:02 | PROVIDERS: PCP Nurse Practitioner Family; Visit Provider Nurse Practitioner Family | DX: R39.15 Urgency of urination (principal); Z13.89 Encounter for screening for other disorder | CPT/HCPCS: 81003; 87086; 99212 ==

== ENCOUNTER 2025-06-11 08:02 | Outpatient (AMB) | payer OTHER, SELFPAY ==
[2025-06-11 08:04] VITALS: BP 120/88; PULSE 95; TEMP 36.7; O2SAT 98; BMI 30.8
--- NOTE | 2025-06-11 08:04 | AM.OFFWIN_ITS ---
Intake Vital Signs 06/11/25 08:04 Height 5 ft 5 in Weight 185 lb BMI 30.8 BP 120/88 Blood Pressure Location Lt brachial Position Sitting Pulse 95 Pulse Source Pulse Oximeter Temp 98.1 F Temp Source Oral Pulse Oximetry (%) 98 Oxygen Delivery Method Room Air Intake Visit Reasons: EP - Discomfort Inability to urinate Intake Note: Patient presents with c/o abdominal pressure & urinary urgency x1 week Patient Tobacco Use Status: Current everyday Tobacco user Allergies No Known Allergies Allergy (Verified 06/11/25 08:06) Do you need a note to return to daycare/school/sports/work: Yes HPI HPI Comments History of Present Illness Details 30 y/o Male patient who presents to the walk in clinic with c/o Urinary Urgency and lower discomfort for few days now. Denies fevers, chills, Nausea or vomiting. Sexually active with one Female partner no concerns for STIs. He does have h/o Kidney stones - last episode was 2 years ago. [facility] Medical History (Updated 06/11/25 @ 08:25 by Maryuri Gudino NP) Urgency of urination Acid reflux Surgical History S/P foot surgery, left Family History Mother Alcohol abuse Father Alcohol abuse Substance abuse FH: mental illness Maternal Grandfather Alcohol abuse Maternal Grandmother Alcohol abuse Paternal Grandmother Breast cancer Social History Housing: Apartment Alcohol intake: current Patient Tobacco Use Status: Current everyday Tobacco user Cigarettes Per Day: 10 Years Smoked: 5 e-Cigarette/Vaping Use: Currently Using Second Hand Smoke Exposure: No Substance Use Type: Marijuana service: No Current occupational status: employed Current occupation: [employer] Current occupational exposures/hazards: Yes Cognitive needs: No Hearing needs: No Vision needs: No Review of Systems Const All systems reviewed & are unremarkable except as noted in HPI and below Physical Exam Vital Signs: Last Vital Signs Temp 98.1 F 06/11/25 08:04 Pulse 95 06/11/25 08:04 BP 120/88 06/11/25 08:04 Pulse Ox 98 06/11/25 08:04 Oxygen Delivery Method Room Air 06/11/25 08:04 BMI result Body Mass Index 30.8 Const General: no acute distress Nutritional Appearance: overweight Orientation/consciousness: patient oriented x3 Other: Deferred Examination. General: Yes no CVA tenderness Back/Spine/Pelvis Back: no CVA tenderness Neuro General: patient oriented x3, gait normal and moves all extremities Psych Speech and movement: Normal speech and movement present Results AMB Urinalysis, Automated UA Leukoctes 0 Shannan/uL Last Edit by Kate Nickerson CMA on 06/11/25 08:18 UA Nitrite Negative Last Edit by Kate Nickerson CMA on 06/11/25 08:18 UA Urobilinogen 0.2 mg/dL Last Edit by Kate Nickerson CMA on 06/11/25 08: 18 UA Protein 15 mg/dL Last Edit by Kate Nickerson CMA on 06/11/25 08:18 UA pH 6.0 Last Edit by Kate Nickerson CMA on 06/11/25 08:18 UA Blood 200 Chauncey/uL Last Edit by Kate Nickerson CMA on 06/11/25 08:18 UA Specific [place] 1.020 Last Edit by Kate Nickerson CMA on 06/11/25 08 :18 UA Ketone Negative Last Edit by Kate Nickerson CMA on 06/11/25 08:18 UA Bilirubin 0 mg/dL Last Edit by Kate Nickerson CMA on 06/11/25 08:18 UA Glucose 0 mg/dL Last Edit by Kate Nickerson CMA on 06/11/25 08:18 Results Reviewed Results Reviewed: Laboratory Last Values Urine pH (Auto) 6.0 06/11/25 08:12 Specific [place] (Auto) 1.020 06/11/25 08:12 Urine Protein (Auto) 15 mg/dL 06/11/25 08:12 Glucose (UA)(Auto) 0 mg/dL 06/11/25 08:12 Urine Ketones (Auto) Negative 06/11/25 08:12 Urine Blood (Auto) 200 Chauncey/uL H* 06/11/25 08:12 Urine Nitrite (Auto) Negative 06/11/25 08:12 Urine Bilirubin (Auto) 0 mg/dL 06/11/25 08:12 Urine Urobilinogen (Auto) 0.2 mg/dL 06/11/25 08:12 Leukocyte Esterase (Auto) 0 Shannan/uL 06/11/25 08:12 Assessment & Plan Assessment & Plan (1) Urgency of urination: Code(s): R39.15 - Urgency of urination Plan: DDx's: Kidney stones vs UTI Urinalysis Positive for Blood, negative on SHANNAN, NIT Sent Urine for culture. Ordered Flomax for few days. Hydrate well with fluids. Naproxen or Ibuprofen for pain relief. Orders: Orders Urine Culture Today N30.90 - Cystitis, unspecified without hematuria AMB Urinalysis Automated Today Z13.9 - Encounter for screening, unspecified Medications: New tamsulosin (Flomax) 0.4 mg PO DAILY 10 caps 0RF 7 days R39.15 - Urgency of urination Coding Level of Care Code Est Pt Level 4 (88695) Diagnoses Urgency of urination R39.15 Time Spent (min) 20
--- OUTSIDE RECORDS SUMMARY | 2025-06-11 08:04 | XMS_ITS | Encounter Summary ---
Author Organization [facility] Address [address] [place] [address] Phone Care Team Providers Care Mussel Farmer Name Role Phone Rocco Dobbs MD Primary Care Provider [phone] Encounter Details Date Type Department Care Team (Late st Contact Info) Description 01/06/2018 Conversion Encounter [facility] [address] [place] [address] Rocco Dobbs MD [address] [place] [address] Social History Tobacco Use Types Packs/Day Years [...] on filedocumented in this encounter Care Teams Mussel Farmer Relationship Specialty Start Date End Date Rocco Dobbs MD [address] [place] [address] PCP - General 12/26/17 09/28/24 documented as of this encounter
--- OUTSIDE RECORDS SUMMARY | 2025-06-11 08:04 | XMS_ITS | Clinical Summary ---
Author Organization [facility] Address [address] [place] [address] Phone Care Team Providers Care Truck Crane Operator Name Role Phone Unavailable Primary Care Provider [...]
--- OUTSIDE RECORDS SUMMARY | 2025-06-11 08:04 | XMS_ITS | Encounter Summary ---
Author Organization [facility] Address [address] [place] [address] Phone Care Team Providers Care Waste Machine Operator Name Role Phone Rocco Dobbs MD Primary Care Provider [phone] Encounter Details Date Type Department Care Team (Late st Contact Info) Description 09/14/2009 Documentation [facility] [place] Family Medicine [address] [place] [address] Family Medicine, Physician [address] [place] [address] Social History Tobacco Use Types Packs/Day Years [...] on filedocumented in this encounter Care Teams Waste Machine Operator Relationship Specialty Start Date End Date Rocco Dobbs MD [address] [place] [address] PCP - General 12/26/17 09/28/24 documented as of this encounter
--- OUTSIDE RECORDS SUMMARY | 2025-06-11 08:04 | XMS_ITS | Data Portability ---
Author Organization [facility], [address] Address [address] [place] [address] Assessment No assessment recorded. Plan of Treatment Reminders Order Date Submit Date Provider Last Modified By Organization Details Last Modified Time Details Appointments None recorded. Lab None recorded. Referral gastroenter ologist referral 2024 025 alaines Not available 11:11:56 Procedures None recorded. Surgeries None recorded. Imaging None recorded. Medication Orders omeprazole 20 mg capsule,del ayed release 2024 025 [email or web address] [id number], [address] [place], [address], 11:10:23 Patient TargetsNo targets recorded. Patient Instructions Encounter Date Encounter Id Patient Instructions Last Modified By Organization Details Last Modified Time 08/30/2024 [id number] gastroesophageal reflux disease (GERD): care instructions [email or web address] Not available 08/30/2024 11:10:20 Reason for Referral Dumpster Driver Referral for Gastroesophageal reflux disease Referring Physician: Wong Temple, Urgent Care, Encounter Date: 08/30/2024 Procedures Surgical History Date Name Laterality Status Provider Name and Address Organization Details Recorded Time 3 OC-UDS Send Out Template NON DOT completed [...] Pulse oximetry Heart rate Body temperature Systolic And Diastolic Provider Name and Address Organization Details Last Updated DateTime 167.64 cm 31.3 kg/m2 58850.9 2 g 97 % 97 % 71 /min 98.2 [degF] 126/82 mm[Hg] Kena PERRY [facility] 10:54:01 Social History Question Answer Notes LastModified by [employer] Details LastModified Time Tobacco Smoking Status Never Smoker Kena myles [employer] 08/30/2024 10:56:14 Which Illicit Or Recreational Drugs Have You Used? MARIJUANA Information not available 08/30/2024 Have You Had A Flu Shot This Season? No Information not available 08/30/2024 If No, Would You Like A Flu Shot Today? No Information not available 08/30/2024 What Is Your Relationship Status? Single Information not available 08/30/2024 Are You Passively Exposed To Smoke? No Information no t available 08/30/2024 Sex: Unknown Functional Status Question Answer Note LastModified by [employer] Details LastModified Time How many times per week do you consume alcohol? 5-7 times per week Information not available 08/30/2024 Do you use any illicit or recreational drugs? Yes Information not available 08/30/2024 Do you or have you ever used any other forms of tobacco or nicotine? No Information not available 08/30/2024 What is your level of alcohol consumption? Moderate Information not available 08/30/2024 Are you currently employed? Yes Information not available 08/30/2024 Mental Status None recorded. Family History Nothing Reported. Medical History No medical history recorded. Past Encounters Encounter ID Performer Location Encounter Start Date Encounter Closed Date Diagnosis/Indication Diagnosis SNOMED-CT Code Diagnosis ICD10 Code Diagnosis IMO Codes Diagnosis Note [id number] _[facility] _[address] [address] 12/29/2016 16:49:00 12/29/2016 17:40:41 [id number] [facility] _[address] [address] 04/05/2023 09:08:23 04/05/2023 09:26:14 History and physical examination, occupation 499058692 Z02.1 [id number] Wong Temple DO _[address] [address] 08/30/2024 10:41:32 08/30/2024 11:11:56 Gastroesophageal reflux disease 740573945 K21.00 GERD v PUDstart PPI BIDGI referralav [...] Recorded Advance Directives Directive None Recorded Payers Insurance Date Sequence Insurance Name Policy Number Policy Perea Covered Member ID Perea Member ID Guarantor Name 04/05/2023 OC-ESCREEN [employer] OTHER Mi rosanna Gutierrez 08/30/2024 1 [facility] NET PLAN (MEDICAID HMO) [id number] Oral Gutierrez [id number] Oral Gutierrez 08/30/2024 1 [facility] (HMO) [id number] Oral Gutierrez [id number] Oral Gutierrez 08/30/2024 1 [employer] (POS) [id number] Lolly Mascorro [id number] Oral Gutierrez Notes Date Note Type Note Provider Name and Address Organization Details Recorded Time 08/30/2024 text/html ROS as noted in the HPI 29 yo male c/o throat pain and esophageal pain x monthsradiates to upper abdomen/back no f/cno n/vno d/cno abdominal painno melena/BRBPRno new medsHe has used ibutolerating POno wt lossnon smoker Wong Temple, DO [address] [place], [address], [place] - [facility] 08/30/2024 11:11:41
--- OUTSIDE RECORDS SUMMARY | 2025-06-11 08:04 | XMS_ITS | Encounter Summary ---
Author Organization [facility] Address [address] [place] [address] Phone Care Team Providers Care Administrative Support Associate Name Role Phone Rocco Dobbs MD Primary Care Provider [phone] Encounter Details Date Type Department Care Team (Late st Contact Info) Description 08/23/2009 Documentation [facility] [place] [address] [place] [address] Family Medicine, Physician [address] [place] [address] Social History Tobacco Use Types Packs/Day Years [...] on filedocumented in this encounter Care Teams Administrative Support Associate Relationship Specialty Start Date End Date Rocco Dobbs MD [address] [place] [address] PCP - General 12/26/17 09/28/24 documented as of this encounter
--- OUTSIDE RECORDS SUMMARY | 2025-06-11 08:04 | XMS_ITS | Encounter Summary ---
Author Organization [facility] Address [address] [place] [address] Phone Care Team Providers Care Home Care Consultant Name Role Phone Rocco Dobbs MD Primary Care Provider [phone] Encounter Details Date Type Department Care Team (Late st Contact Info) Description 09/02/2009 Documentation [facility] [place] Family Medicine [address] [place] [address] Family Medicine, Physician [address] [place] [address] Social History Tobacco Use Types Packs/Day Years [...] on filedocumented in this encounter Care Teams Home Care Consultant Relationship Specialty Start Date End Date Rocco Dobbs MD [address] [place] [address] PCP - General 12/26/17 09/28/24 documented as of this encounter
== END 2025-06-11 08:38 | disposition home or self-care (01) ==
PROVIDERS: PCP Nurse Practitioner Family; Visit Provider Nurse Practitioner Family
DX: Z13.9 Encounter for screening, unspecified (principal); R39.15 Urgency of urination